=== PATIENT | female | born 1930 | race Caucasian/White ===

== ENCOUNTER 2019-02-18 15:17 | Outpatient (CLI) | payer OTHER | END 2019-02-18 15:27 | disposition home or self-care (01) | LOC: RAD 501 15:17 | DX: M54.2 Cervicalgia (principal); M54.5 Low back pain ==

== ENCOUNTER 2020-10-13 12:45 | Outpatient (CLI) | payer OTHER | END 2020-10-13 13:07 | disposition home or self-care (01) | LOC: RAD 12:45 | PROVIDERS: ATTEND Internal Medicine Cardiovascular Disease | DX: M12.871 Other specific arthropathies, not elsewhere classified, right ankle and foot (principal); M12.872 Other specific arthropathies, not elsewhere classified, left ankle and foot ==